=== PATIENT | male | born 1975 | race Caucasian/White ===

== ENCOUNTER 2024-01-21 08:04 | Outpatient (CLI) | payer OTHER, SELFPAY ==
[2024-01-21 18:40] LABS: Hematocrit 41.9 % (42.0-52.0); Hemoglobin 13.6 g/dL (14.0-18.0); Mean Corpuscular HGB Conc 32.5 g/dl (32-36); Mean Corpuscular Hemoglobin 30.6 pg (26-34); Mean Corpuscular Volume 94.4 fl (80-100); Mean Platelet Volume 9.9 fl (7.4-10.4); Platelet Count Result 203 k/mm3 (150-375); Red Blood Count 4.44 M/mm3 (4.6-6.20); Red Cell Distribution Width 13.2 % (11.5-14.5); White Blood Count 4.5 K/mm3 (4.5-10.0)
[2024-01-21 19:35] LABS: Alanine Aminotransferase 16 U/L (6-50); Albumin Level 4.3 g/dL (3.5-5.1); Alkaline Phosphatase 43 U/L (38-126); Anion Gap 7 mmol/L (4-12); Aspartate Amino Transferase 31 U/L (17-59); Bilirubin,Total 0.7 mg/dL (0.2-1.3); Blood Urea Nitrogen 22 mg/dL (9-20); Calcium 9.2 mg/dL (8.4-10.2); Carbon Dioxide 27 mmol/L (22-30); Chloride 105 mmol/L (98-107); Cholesterol 208 mg/dL (0-200); Estimated Glomerular Filt Rate > 60; Glucose 92 mg/dL (65-110); HDL Direct 60 mg/dL; Potassium 4.2 mmol/L (3.4-5.0); Sodium 139 mmol/L (137-145); Triglycerides 58 mg/dL (<150)
[2024-01-21 19:48] LABS: LDL Cholesterol Direct 107 mg/dL
[2024-01-21 20:06] LABS: Prostate Specific Antigen 4.8 ng/mL (< OR = 4.0)
[2024-01-21 20:37] LABS: Vitamin D 25 Hydroxy 42.2 ng/mL
[2024-01-22 14:19] LABS: CRP, High Sensitivity 1.9 mg/L
== END 2024-01-21 08:05 | disposition home or self-care (01) ==
LOC: ANHGOSHLAB 08:06
PROVIDERS: PCP Family Medicine; Visit Provider Family Medicine
DX: Z00.00 Encounter for general adult medical examination without abnormal findings (principal); T78.40XA Allergy, unspecified, initial encounter; R55 Syncope and collapse; Z85.828 Personal history of other malignant neoplasm of skin; Z76.89 Persons encountering health services in other specified circumstances; Z82.49 Family history of ischemic heart disease and other diseases of the circulatory system; X58.XXXA Exposure to other specified factors, initial encounter
CPT/HCPCS: 36415; 80053; 80061; 82306; 82607; 84153; 84443; 85027; 86141

== ENCOUNTER 2024-03-17 08:15 | Outpatient (CLI) | payer OTHER, SELFPAY ==
[2024-03-17 13:10] LABS: Hematocrit 45.3 % (42.0-52.0); Hemoglobin 14.7 g/dL (14.0-18.0); Mean Corpuscular HGB Conc 32.5 g/dl (32-36); Mean Corpuscular Hemoglobin 31.1 pg (26-34); Mean Platelet Volume 10.3 fl (7.4-10.4); Platelet Count Result 207 k/mm3 (150-375); Red Blood Count 4.72 M/mm3 (4.6-6.20); Red Cell Distribution Width 12.8 % (11.5-14.5); White Blood Count 4.4 K/mm3 (4.5-10.0)
[2024-03-17 13:39] LABS: Prostate Specific Antigen 4.5 ng/mL (< OR = 4.0)
[2024-03-17 13:49] LABS: Free T4 Free Thyroxine 0.89 ng/mL (0.78-2.19)
[2024-03-19 09:13] LABS: Thyroid Peroxidase Antibodies >900 IU/mL (<9)
== END 2024-03-17 08:16 | disposition home or self-care (01) ==
LOC: ANHGOSHLAB 08:18
PROVIDERS: PCP Family Medicine; Visit Provider Family Medicine
DX: Z00.00 Encounter for general adult medical examination without abnormal findings (principal); Z76.89 Persons encountering health services in other specified circumstances; T78.40XA Allergy, unspecified, initial encounter; R97.20 Elevated prostate specific antigen [PSA]; R79.89 Other specified abnormal findings of blood chemistry; D64.9 Anemia, unspecified
CPT/HCPCS: 36415; 82728; 84153; 84439; 84443; 85027; 86376; G0103

== ENCOUNTER 2024-07-15 08:43 | Outpatient (CLI) | payer OTHER, SELFPAY | END 2024-07-15 08:44 | disposition home or self-care (01) | LOC: ANHGOSHLAB 08:44 | PROVIDERS: PCP Family Medicine; Visit Provider Family Medicine | DX: E03.9 Hypothyroidism, unspecified (principal) | CPT/HCPCS: 36415; 84443 ==

== ENCOUNTER 2024-10-09 08:45 | Outpatient (CLI) | payer OTHER, SELFPAY ==
[2024-10-09 14:17] LABS: Free T4 Free Thyroxine 1.08 ng/dL (0.78-2.19)
== END 2024-10-09 08:46 | disposition home or self-care (01) ==
PROVIDERS: PCP Family Medicine; Visit Provider Family Medicine
DX: E03.9 Hypothyroidism, unspecified (principal)
CPT/HCPCS: 36415; 84439; 84443

== ENCOUNTER 2025-04-19 08:44 | Outpatient (CLI) | payer OTHER, SELFPAY ==
--- OUTSIDE RECORDS SUMMARY | 2025-04-19 08:50 | XMS_ITS | Patient Health Record ---
Author Organization [facility] Cassie kearney Billing Info Address [address] [place] [address] [place] [address] Care Team Providers Care Stewardesses Teacher Name Role Phone STEVE KUMAR Unavailable [phone] Allergies No Known Allergies Reason For Referral No Information Medications Medication SIG (Take, Route, Fr equency, Duration) Notes Start Date End Date Status Fluconazole 150 MG 1 tablet Orally Maeve y for 3 day(s) 07/13/2020 Not-Taking Immunizations Vaccine Route Administration Date Status Comme nts zFLU 4V (FLUARIX QUAD), 6 MO+, NO PRES - ALL PAYORS IM Intramuscular 07/13/2020 Administered Social History Tobacco Use: Social History Observation Description Date Details (start date - stop date) Never Smoker NA - NA Tobacco Status: Question Answer Notes Patient is a never smoker Problems Problem Type SNOMED Code ICD Code Onset Dates Problem Status W/U Status Risk Notes Problem [id number] Family history of heart disease (Z82.49) Active confirmed Problem [id number] Chronic allergic rhinitis (J30.9) Active confirmed Plan Of Treatment No Information Insurance Providers Payer Name Payer Address Payer Phone Subscriber Number Group Number Insured Name Patient Relationship to Insured Coverage Start Date Coverage End Date [employer] [address] [place], [place] [id number] [phone] [id number] Eduardo Anand Self - patient is the insured Medical (General) History Medical History History ICD Code Takes allergy shots Surgical History Surgery Date(Month/Year)
--- OUTSIDE RECORDS SUMMARY | 2025-04-19 08:50 | XMS_ITS | Clinical Summary ---
Author Organization [facility] Address [address] [place] [address] Care Team Providers Care Reclamation Kettle Tender Name Role Phone Unavailable Primary Care Provider Unavailabl e Source Comments [facility],non-owned Affiliates and Associated Physician Practices is amultiple site organization consisting of ambulatory clinics and hospital sitesin [place], [place], [place] and [place]. This disclosure is being madepursuant to the Care Everywhere program and may not contain all information available regarding this patient. Last updated 18.[facility] [employer] Social History Tobacco Use Types Packs/Day Years Used Date Smoking Tobacco: Never Assessed Sex and Gender Information Value Date Recorded Sex Assigned at Not on file Legal Sex Male 4:16 PM CDT Gender Identity Not on file Sexual Orientation Not on file Plan of Treatment Health Maintenance Due Date Last Done Comments COLOGUARD (AGES 45-75) - COL ON CA SCREENING 1973 COLON MONITORING 1973 COLONOSCOPY - COLON CA SCREENING 1973 CT COLONOGRAPHY - COLON CA SCREENING 1973 Colorectal Cancer Screening 1973 FIT - COLON CA SCREENING 1973 FLEX SIG - COLON CA SCREENING 1973 LIPID TESTING 1973 HIV SCREENING 1988 HEPATITIS C SCREENING 08/24/1991 DTAP/TDAP/TD VACCINES (1 - Tdap) 1992 HEPATITIS B VACCINE (1 of 3 - 19+ 3-dose series) 1992 PNEUMOCOCCAL VACCINE 50+ (1 of 1 - PCV) 2023 ZOSTER VACCINE (1 of 2) 2023 COVID-19 VACCINE (1 - 2023-2 5 season) 2024 DEPRESSION SCREENING 09/09/2024 INFLUENZA VACCINE (#1) 2025 HIB VACCINE Aged Out No longer eligi ble based on patient's age to complete this topic HPV VACCINE Aged Out No longer eligi ble based on patient's age to complete this topic MENINGOCOCCAL (Group B) VACC INE SHARED DECISION-MAKING Aged Out No longer eligibl e based on patient's age to complete this topic MENINGOCOCCAL GROUPS A/C/Y/W VACCINE Aged Out No longer eligible b ased on patient's age to complete this topic Insurance [facility] [employer]
--- OUTSIDE RECORDS SUMMARY | 2025-04-19 08:50 | XMS_ITS | Encounter Summary ---
Author Organization [facility] Address [address] [place] [address] Care Team Providers Care Hims Manager Name Role Phone Unavailable Primary Care Provider Unavailabl e Encounter Details Date Type Department Care Team (Late st Contact Info) Description 12/23/2023 Lab Requisition [facility] - DermPath Lab [address] [facility], [facility] [place] [address] Alaina Ellis DO [address] [facility] 3 [place] [address] Social History Tobacco Use Types Packs/Day Years Used Date Smoking Tobacco: Never Assessed Sex and Gender Information Value Date Recorded Sex Assigned at Not on file Legal Sex Male 4:16 PM CDT Gender Identity Not on file Sexual Orientation Not on file documented as of this encounter Plan of Treatment Not on file documented as of this encounter Procedures Procedure Name Priority Date/Time Associated Diagnosis Comments DERMATOPATHOLOGY Routine 12/23/2023 9:07 AM CDT documented in this encounter Results * DERMATOPATHOLOGY (12/23/2023 9:07 AM CDT) Case Report Dermatopathology Report Case: [id number] Authorizing Provider: Alaina Ellis DO Collected: 12/23/2023 09:07 AM Ordering Location: [facility] - Received: 12/23/2023 04:21 PM DermPath Lab Pathologist: Yamile Wallace MD Specimen: Skin, right helix 4:55 PM CDT DERMATOPATHOLOGY LABORATORY Final Diagnosis Specimen A. 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 NMSC 4:55 PM CDT DERMATOPATHOLOGY LABORATORY Gross Description Specimen A: Received is one formalin filled container labeled with the patient's name and designated right helix. The specimen consists of a shave biopsy measuring 3x3x1 mm. Jar 0. 4:55 PM CDT DERMATOPATHOLOGY LABORATORY Microscopic Description Specimen A. SKIN, right helix: There is an erosion overlying epidermal hyperplasia and dilated blood vessels with fibroplasia. Additional deeper sections were obtained and reviewed. 4:55 PM CDT DERMATOPATHOLOGY LABORATORY Disclaimer An external and internal positive and negative controls are appropriate for the histochemical, immunohistochemical and immunofluorescence stain(s) in this case (if any), except where stated explicitly. The performance characteristics of the stain(s) cited in this report were developed and its performance characteristic determined by the Dermatopathology Laboratory at [facility], directed by Dr. Colleen Almonte. These tests need not be, and therefore are not, approved by the [place] Food and Drug Administration. The tests are used for clinical purposes. Billing Codes Specimen Charges Stain Charges 81136 1 4:55 PM CDT DERMATOPATHOLOGY LABORATORY Embedded Images 4:55 PM CDT DERMATOPATHOLOGY LABORATORY Pathology/Cytolo gy TISSUE SPECIMEN FROM SKIN / Unknown 12/23/2023 9:07 AM CDT 12/23/2023 4:21 PM CDT us Alaina Ellis DO LAB - PATHOLOGY/CYTOLOGY ORDERABLES Final Result DERMATOPATHOLOGY LABORATORY [facility] - Department of Dermatology [address], [address] [phone] documented in this encounter Visit Diagnoses Not on filedocumented in this encounter
--- OUTSIDE RECORDS SUMMARY | 2025-04-19 08:50 | XMS_ITS ---
Author Organization [facility] Address [address] [place] [address] Care Team Providers Care Power Plant Manager Name Role Phone Perry Page Primary Care Provider Unavailab Sarah Blackburn Unavailable [phone] Migration, Provider Unavailable Unavailable [facility] Encounter Medications Medication SIG (Take, Route, Frequency, Duration) Notes Start Date End Date Status Triamcinolone Acetonide 0.5 % Cream 1 eliza applied topically 2 times a day; Duration: 14 days 06/26/2021 Active Encounters Encounter Location Date Provider Diagnosis [facility] [address] [address] 11/14/2024 Provider Migration Plan Of Treatment No Information Progress Notes * Eduardo SILVA CDOB:1974 (49 yo M)Acc No.[id number]:11/14/2024 Patient: Gracy jimbomartha Eduardo Colvin Provider: :1975 A ge:49 Y S ex:Male Date:11/14/2024 Address:[address] [id number] Pcp:Perry Page Subjective: * Chief Complaints: * M ultum To Medispan Conversion Encounter * Medications: T akingTriamcinolone Acetonide 0.5 % Cream 1 eliza applied topically 2 times a day Taking Triamcinolone Acetonide 0.5 % Cream 1 eliza applied topically 2 times a day * Electronic signature of Prov ider Migration on 04/19/2025 at 08:50 AM CDT Sign off status: Pending * Provider: Date: 0 11/14/2024 Generated for Geoff guerrero/Camilla/Christopher on: 0 04/19/2025 08:50 AM CDT
--- OUTSIDE RECORDS SUMMARY | 2025-04-19 08:50 | XMS_ITS | Encounter Summary ---
Author Organization [facility] Address [address] [facility] [place] [place] [address] Care Team Providers Care Warp Knitter Helper Name Role Phone Unavailable Primary Care Provider Unavailabl e Encounter Details Date Type Department Care Team (Late st Contact Info) Description 09/21/2024 Lab Requisition [facility] - DermPath Lab [address] [facility], [facility] [place] [address] Alaina Ellis DO [address] [facility] [address] [place] [address] Social History Tobacco Use Types Packs/Day Years [...] Priority Date/Time Associated Diagnosis Comments DERMATOPATHOLOGY Routine 09/21/2024 1:59 PM COIL STRAPPER documented in this encounter Results * DERMATOPATHOLOGY (09/21/2024 1:59 PM COIL STRAPPER) Case Report Dermatopathology Report Case: [id number] Authorizing Provider: Alaina Ellis DO Collected: 09/21/2024 01:59 PM Ordering Location: [facility] - Received: 09/22/2024 02:14 PM DermPath Lab Pathologist: Carole Almonte MD Specimens: A) - Skin, right upper back B) - Skin, upper back below scar 5 5:07 PM COIL STRAPPER DERMATOPATHOLOGY LABORATORY Final Diagnosis Specimen A. 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 SKIN, upper back below scar: EPIDERMOID CYST, FRAGMENTS OF (L72.0) 5 5:07 PM [facility] DERMATOPATHOLOGY LABORATORY at 1707 COIL STRAPPER Clinical History A: R/O recurrent DFSP B: Cyst/Scar 5:07 PM [facility] DERMATOPATHOLOGY LABORATORY Gross Description Specimen A: Received is one formalin filled container labeled with the patient's name and designated right upper back. The specimen consists of a shave biopsy measuring 8x6x3 mm. Jar 0. Specimen B: Received is one formalin filled container labeled with the patient's name and designated upper back below scar. The specimen consists of a punch biopsy measuring 4x4x8 mm. Jar 0+. 5:07 PM [facility] DERMATOPATHOLOGY LABORATORY Microscopic Description Specimen A. SKIN, right upper back: There are very thick, brightly eosinophilic, haphazardly arranged collagen bundles associated with an increased number of fibroblasts. There are fibroblasts and collagen bundles oriented parallel to the skin surface with elongated blood vessels, some of which are oriented perpendicular to the skin surface. COMMENT: Given the superficial nature of the biopsy specimen, a deeper dermal process cannot be excluded. Specimen B. SKIN, upper back below scar: Sections show multiple portions of epithelium with a granular layer. There are also portions of keratin, predominantly in a basket-woven configuration. 5:07 PM [facility] DERMATOPATHOLOGY LABORATORY Disclaimer An external and internal positive and negative controls are appropriate for the histochemical, immunohistochemical and immunofluorescence stain(s) in this case (if any), except where stated explicitly. The performance characteristics of the stain(s) cited in this report were developed and its performance characteristic determined by the Dermatopathology Laboratory at [facility], directed by Dr. Colleen Almonte. These tests need not be, and therefore are not, approved by the [place] Food and Drug Administration. The tests are used for clinical purposes. Billing Codes Specimen Charges Stain Charges 38389 21443 1 1 5:07 PM [facility] DERMATOPATHOLOGY LABORATORY Embedded Images 5:07 PM [facility] DERMATOPATHOLOGY LABORATORY Pathology/Cytology TISSUE SPECIMEN FROM SKIN / Unknown 09/21/2024 1:59 PM COIL STRAPPER 09/22/2024 2:14 PM [facility] Miscellaneous samples (specimen) TISSUE SPECIMEN FROM SKIN / Unknown 09/21/2024 1:59 PM COIL STRAPPER 09/22/2024 2:14 PM COIL STRAPPER us Alaina Ellis DO LAB - PATHOLOGY/CYTOLOGY ORDERABLES Final Result DERMATOPATHOLOGY LABORATORY [facility] - Department of Dermatology [facility] [address] [place] [address], [address] [phone] documented in this encounter Visit Diagnoses Not on filedocumented in this encounter
--- OUTSIDE RECORDS SUMMARY | 2025-04-19 08:50 | XMS_ITS | Patient Health Record ---
Author Organization [facility] Address [address] [facility] [address] Care Team Providers Care Ladder Operator Name Role Phone DantemegganPerry Primary Care Provider Unavailab Sarah Blackburn Unavailable [phone] Migration, Provider Unavailable Unavailable Allergies No Known Allergies Reason For Referral No Information Medications Medication SIG (Take, Route, Frequency, Duration) Notes Start Date End Date Status Triamcinolone Acetonide 0.5 % Cream 1 eliza applied topically 2 times a day; Duration: 14 days 06/26/2021 Active Social History Social History Additional Details Category Social Info Options Details Social History Sunscreen use Yes Alcohol: Do you typically krause ve 6 or more alcohol containing drinks on one occasion? No Smoker: Are you a current ev dorinda day smoker, vape user, or any other form of nicotine? 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 Mohs Encounters Encounter Location Date Provider Diagnosis [facility] [address] [place] [address] 11/14/2024 Provider Migration Plan Of Treatment No Information Insurance Providers Payer Name Payer Address Payer Phone Subscriber Number Group Number Insured Name Patient Relationship to Insured Coverage Start Date Coverage End Date [employer] [address] [facility] [place] [phone] [id number] Eduardo Anand Self - patient is the insured 2021 Medical (General) History Medical History History ICD Code Skin Cancer: Yes (DERMATOFIBROSARCOMA) Cancer, other: No Atypical Moles: No Surgery: No Arthritis: No Diabetes: No Coronary Artery Disease: No Heart Valve Replacement: No Congestive Heart Failure: No High Blood Pressure: No Seizures: No Stroke: No Hepatitis C: No HIV/Aids: No Joint/Hip Replacement: No Neoplasm of uncertain behavior of skin ( resolved 05/03/2022) 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
--- OUTSIDE RECORDS SUMMARY | 2025-04-19 08:50 | XMS_ITS | Encounter Summary ---
Author Organization [facility] Address [address] [facility] [place] [address] Care Team Providers Care Mammography Supervisor Name Role Phone Unavailable Primary Care Provider Unavailabl e Encounter Details Date Type Department Care Team (Late st Contact Info) Description 02/25/2023 Lab Requisition [facility] - DermPath Lab [address] [facility], [facility] [place] [address] Alaina Ellis DO [address] [facility] 3 [place] [address] Social History Tobacco Use Types Packs/Day Years [...] Priority Date/Time Associated Diagnosis Comments DERMATOPATHOLOGY Routine 02/25/2023 2:32 PM CDT documented in this encounter Results * DERMATOPATHOLOGY (02/25/2023 2:32 PM CDT) Case Report Dermatopathology Report Case: [id number] Authorizing Provider: Alaina Ellis DO Collected: 02/25/2023 02:32 PM Ordering Location: [facility] DermPath Lab Received: 02/26/2023 12:47 PM Pathologist: Melissa Dobson MD Specimen: Skin, left upper inner arm 3 4:13 PM CDT DERMATOPATHOLOGY LABORATORY Final Diagnosis Specimen A. SKIN, left upper inner arm: SUBACUTE SPONGIOTIC DERMATITIS (L30.8) (see microscopic description and comment) 3 4:13 PM CDT DERMATOPATHOLOGY LABORATORY at 1613 CDT Clinical History R/O NMSC 3 4:13 PM CDT DERMATOPATHOLOGY LABORATORY Gross Description Specimen A: Received is one formalin filled container labeled with the patient's name and designated left upper inner arm. The specimen consists of a shave biopsy measuring 5x2x1 mm. Jar 0. 3 4:13 PM CDT DERMATOPATHOLOGY LABORATORY Microscopic Description Specimen A. SKIN, left upper inner arm: There is focal parakeratosis and spongiosis of the epidermis. In the dermis there is a mainly superficial perivascular lymphoid infiltrate. COMMENT: These histological findings are consistent with an eczematous dermatitis. 3 4:13 PM CDT DERMATOPATHOLOGY LABORATORY Disclaimer An external and internal positive and negative controls are appropriate for the histochemical, immunohistochemical and immunofluorescence stain(s) in this case (if any), except where stated explicitly. The performance characteristics of the stain(s) cited in this report were developed and its performance characteristic determined by the Dermatopathology Laboratory at [facility], directed by Dr. Colleen Almonte. These tests need not be, and therefore are not, approved by the [place] Food and Drug Administration. The tests are used for clinical purposes. Billing Codes Specimen Charges Stain Charges 75613 1 3 4:13 PM CDT DERMATOPATHOLOGY LABORATORY Embedded Images 3 4:13 PM CDT DERMATOPATHOLOGY LABORATORY Pathology/Cytolo gy TISSUE SPECIMEN FROM SKIN / Unknown 02/25/2023 2:32 PM CDT 02/26/2023 12:47 PM CDT us Alaina Ellis DO LAB - PATHOLOGY/CYTOLOGY ORDERABLES Final Result DERMATOPATHOLOGY LABORATORY [facility] - Department of Dermatology [address], [address] [phone] documented in this encounter Visit Diagnoses Not on filedocumented in this encounter
--- OUTSIDE RECORDS SUMMARY | 2025-04-19 08:50 | XMS_ITS | Clinical Summary ---
Author Organization [facility] Address [address] [place] [address] Care Team Providers Care Lacquer Pin Press Operator Name Role Phone No, Physician Primary Care Provider [phone] Allergies Active Allergy Reactions Criticality Noted Date Comments Grass Pollen Itching Low 1975 Horse/Equine Containing Products Sneezing Low Peanut Anaphylaxis High 1973 Medications acetaminophen (TYLENOL) 500 mg tablet Take 1 tablet (500 mg total) by mouth every 6 (six) hours as needed for pain 20 tablet 10/26/2022 Active oxyCODONE (ROXICODONE) 5 mg immediate release tabletIndication s:Pain Take 1 tablet (5 mg total) by mouth every 4 (four) hours as needed for pain 5 tablet 10/26/2022 Active Active Problems Problem Noted Date Diagnosed Date 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 Never 10/26/2022 Q2: How many drinks containi ng alcohol do you have on a typical day when you are drinking? Patient does not drink Q3: How often do you have si x or more drinks on one occasion? Never 10/26/2022 Personal Safety Answer Date Recorded Getting School Help Needed Denies 08/29 Sex and Gender Information Value Date Recorded Sex Assigned at Not on file Legal Sex Male 8:16 AM [employer] Gender Identity Not on file Sexual Orientation Not on file Obstetrics History Last Filed Vital Signs Vital Sign Reading Time Taken Comments Blood Pressure 121/73 10/26/2022 10:00 AM [employer] Pulse 60 10/26/2022 10:00 AM [employer] Temperature 36.1 C (97 F) 10/26/2022 9:20 AM [employer] Respiratory Rate 7 10/26/2022 10:00 AM [employer] Oxygen Saturation 100% 10/26/2022 10:00 AM [employer] Inhaled Oxygen Concentration - - Weight 91.2 kg (201 lb) 10/04/2022 11:15 AM [employer] Height 180.3 cm (5' 11) 10/04/2022 11:15 AM [employer] Body Mass Index 28.03 10/04/2022 11:15 AM [employer] Plan of Treatment Health Maintenance Due Date Last Done Comments Colon Cancer Screening-Colonoscopy 1975 Depression Screening 1975 Hepatitis C Screening 1973 Prostate Cancer Screening-PSA 1973 DTaP/Tdap/Td Vaccine (1 - Tdap) 1984 Hepatitis B Screening 1991 Regular Well Visit/Exam 18-64 1991 Zoster Vaccine (1 of 2) 2023 Influenza Vaccine (#1) 2025 Pneumococcal vaccine <65 Aged Out No longer eligible based on patient's age to complete this topic Insurance [facility] [employer] [employer] Care Teams Lacquer Pin Press Operator Relationship Specialty Start Date End Date No, Physician PCP - General 08/17/22
[2025-04-19 13:00] LABS: Hematocrit 42.3 % (42.0-52.0); Hemoglobin 13.9 g/dL (14.0-18.0); Immature Granulocyte Percent A 0.2 % (0-0.5); Lymphocytes Absolute Auto 1.00 K/mm3 (0.9-3.2); Mean Corpuscular HGB Conc 32.9 g/dl (32-36); Mean Corpuscular Hemoglobin 30.7 pg (26-34); Mean Corpuscular Volume 93.4 fl (80-100); Nucleated Red Blood Cells Absolute Auto 0.000 K/mm3 (0.0-0.012); Nucleated Red Blood Cells Perc 0.0 % (0.0-0.2); Platelet Count Result 202 k/mm3 (150-375); Red Blood Count 4.53 M/mm3 (4.6-6.20); White Blood Count 4.5 K/mm3 (4.5-10.0)
[2025-04-19 13:23] LABS: Alanine Aminotransferase 20 U/L (6-50); Albumin Level 4.3 g/dL (3.5-5.1); Alkaline Phosphatase 40 U/L (38-126); Anion Gap 7 mmol/L (4-12); Aspartate Amino Transferase 46 U/L (17-59); Bilirubin,Total 0.6 mg/dL (0.2-1.3); Blood Urea Nitrogen 13 mg/dL (9-20); Calcium 9.2 mg/dL (8.4-10.2); Carbon Dioxide 26 mmol/L (22-30); Chloride 104 mmol/L (98-107); Cholesterol 183 mg/dL (0-200); Estimated Glomerular Filt Rate > 60; Glucose 97 mg/dL (65-110); HDL Direct 59 mg/dL; Potassium 4.5 mmol/L (3.4-5.0); Sodium 137 mmol/L (137-145); Total Protein 7.4 g/dL (6.3-8.2); Triglycerides 67 mg/dL (<150)
[2025-04-19 14:04] LABS: Prostate Specific Antigen 6.1 ng/mL (< OR = 4.0); Thyroid Stimulating Hormone 4.300 uIU/mL (0.465-4.680)
== END 2025-04-19 08:45 | disposition home or self-care (01) ==
LOC: ANHGOSHLAB 08:45
PROVIDERS: PCP Family Medicine; Visit Provider Family Medicine
DX: Z00.00 Encounter for general adult medical examination without abnormal findings (principal); Z12.5 Encounter for screening for malignant neoplasm of prostate; Z76.89 Persons encountering health services in other specified circumstances; E03.9 Hypothyroidism, unspecified; R97.20 Elevated prostate specific antigen [PSA]; D64.9 Anemia, unspecified; R55 Syncope and collapse
CPT/HCPCS: 36415; 80053; 80061; 82172; 82306; 84153; 84443; 85025; G0103

== ENCOUNTER 2025-07-15 00:08 | Day surgery (SDC) | payer OTHER, SELFPAY ==
--- OUTSIDE RECORDS SUMMARY | 2024-11-14 15:30 | XMS_ITS ---
Author Organization [facility] Address [address] [place] [address] Care Team Providers Care Corporate Claims Examiner Name Role Phone Perry Page Primary Care Provider Unavailab Sarah Blackburn Unavailable [phone] Migration, Provider Unavailable Unavailable [facility] Encounter Medications Medication SIG (Take, Route, Frequency, Duration) Notes Start Date End Date Status Triamcinolone Acetonide 0.5 % Cream 1 eliza applied topically 2 times a day; Duration: 14 days 06/26/2021 Active Encounters Encounter Location Date Provider Diagnosis [facility] [employer] [address] [address] 11/14/2024 Provider Migration Plan Of Treatment No Information Progress Notes * Eduardo SILVA CDOB:1974 (49 yo M)Acc No.[id number]:11/14/2024 Patient: Gracy jimbomartha Eduardo Clovin Provider: :1975 A ge:49 Y S ex:Male Date:11/14/2024 Address:[address] [id number] Pcp:Perry Page Subjective: * Chief Complaints: * M ultum To [facility] Conversion Encounter * Medications: T akingTriamcinolone Acetonide 0.5 % Cream 1 eliza applied topically 2 times a day Taking Triamcinolone Acetonide 0.5 % Cream 1 eliza applied topically 2 times a day * Electronic signature of Prov ider Migration on 07/15/2025 at 03:56 PM SECURITY FIELD SUPERVISOR Sign off status: Pending * Provider: Date: 0 11/14/2024 Generated for Geoff guerrero/Camilla/Christopher on: 1 09/14/2024 03:56 PM SECURITY FIELD SUPERVISOR
--- NOTE | 2025-07-05 13:44 | SUR.PREOP ---
[facility] has started construction of its new state of the art ER which will open Spring 2026. With this, we anticipate parking may be a challenge for some our surgical patients and families. Parking spaces are limited but are available for all Surgical, obstetrics, and ER patients sharing this lot. If you arrive and find you are having a hard time finding a parking space, please note that we understand the challenges, please drive around the hospital and park near Hospital Entrance 1. When you enter this entrance, you can ask a volunteer to direct or take you back to the surgical waiting area to check in. We appreciate everyone?s understanding of these expected challenges while we build for your future. Report to the Outpatient Waiting Room, entrance under the green pavilion located off [address], at time __1045AM___ on date _07/15/25_. Planned Procedure Time: _1245PM__.? Time changes happen often and if your time is changed the preop area will call you the afternoon before. - You and your visitor will be asked to self-screen and do not enter if you have any COVID symptoms. Please call surgeon if you need to reschedule. - A mask is optional within the hospital at this time. Patients may have clear liquids (water, carbonated beverages, clear teas, apple juice) until 3 hours prior to surgery with a maximum of 20 ounces. - No food from midnight until time of surgery and no smoking, or chewing tobacco (or any form of nicotine). No chewing gum, candy or mints. Take only the following medications with a SIP of water on the morning of surgery: ___Levothyroxine___ DO NOT STOP ANY OF YOUR OTHER PRESCRIPTION MEDICATIONS PRIOR TO SURGERY EXCEPT THE FOLLOWING Hold all vitamins and supplements for 3 days per anesthesiologist. Medications to discontinue per physician ___n/a__ Date to take last dose___n/a___ Please no make-up, nail english, hairspray, perfume, deodorant, or body powder the day of surgery.? No jewelry (including any body piercings) or valuables the day of surgery, leave them at home.? Please take a shower or bath the night before, or the morning of, surgery with an antibacterial soap.? Wear comfortable, loose fitting clothing.? - Jewelry must be removed prior to entering the operating room.? Rings and piercings that are not removed may be cut off. - The hospital will not accept responsibility for valuables.? - Please leave all valuables, including medications, at home the day of surgery. If you are going home after surgery, a licensed sweeper driver must drive you home.? - NO public transportation without another adult if you receive anesthesia. - We recommend that an adult stay with you for 24 hours following discharge. - We also recommend that you do not drive, make important decision, drink alcoholic beverages, or take any drugs that were not prescribed by your health care provider for at least 24 hours after your discharge time. Follow any additional instructions given to you from your surgeon. Telephone instructions given to __Eduardo__and asked if any additional questions and then verbalized understanding. Patient advised to call surgeon office or pre surgery nurse liaison [phone] if any additional questions.
[2025-07-05 13:50] VITALS: BMI 29.9
--- NOTE | 2025-07-07 06:56 | PM.HPGS ---
History of Present Illness History of Present Illness Consent: Risks, benefits, and alternatives have been discussed and questions answered. Patient agrees to proceed with procedure. Chief complaint: elevated PSA Narrative: Eduardo Anand is a 49 year old male recently referred by his primary care physician for evaluation of a PSA elevation. His most recent PSA was ng/dl (6.1). His urological history is notable for previously elevated PSA, but he denies prior previous prostate biopsy or urinary tract infections. This abnormal PSA value has not been corroborated by repeat examination. This man has never been on a 5-alpha reductase inhibitor. He has no family history of prostate cancer in his father or brothers. Note for Abnormal PSA: . 06/2025: ?PSA: 6.1 06/21/25: ?mpMRI Prostate: - volume: 28gm ?- PI-RADS 4: posterior midline PZ ?- PI-RADS 4: anterior midline PZ-TZ junction Review of Systems Review of Systems: All systems reviewed & are unremarkable except as noted in HPI and below PMFSH Family History Family History Father Hypertension Heart problem Mother Colon cancer Sibling Hypertension Daughter Celiac syndrome Grandparent Lung cancer Grandparent Breast cancer Diabetes mellitus Hypertension Heart problem Social History Social History Smoking status: Never smoker Second hand tobacco smoke exposure: No Alcohol intake: never Substance use: never Substance use type: does not use Do You Feel Safe in your Home?: Yes Lack of Transportation: No Lack of Food: Never True Current Housing: I Have Housing Concerned About Future Housing: No Difficulty Paying Gas/Electric Bills: No Difficulty Paying for Meds: No Currently Unemployed: No Difficulty w/ Childcare or Family Care: No Living arrangements: with family Occupation/Education: occupation 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 Gender identity (if verbalized by the patient): Male Sexual Orientation (if Verbalized by the Patient): Straight or Heterosexual Spiritual care concerns: No Agree to blood products: Yes Meds Home Medications and Allergies Home Medications ?Medication ?Instructions ?Recorded ?Confirmed ?Type levothyroxine 50 mcg tablet 50 mcg PO DAILY #90 tabs 04/08/25 07/05/25 Rx (Synthroid) clobetasol 0.05 % topical ointment 1 applic topical DAILY PRN poison 07/05/25 07/05/25 History karine epinephrine 0.3 mg/0.3 mL 0.3 ml IM PRN 07/05/25 07/05/25 History injection, auto-injector Allergies Allergy/AdvReac Type Severity Reaction Status Date / Time peanut Allergy Intermediate Other Verified 07/05/25 13:48 Exam Const: General: no acute distress Resp: Effort & Inspection: normal respiratory effort GI: Inspection: non-distended GI Palp: No abdominal tenderness and No Guarding due to palpation present (GI) Auscultation: normal bowel sounds Assessment and Plan Assessment and plan (1) Elevated PSA: Code(s): R97.20 - Elevated prostate specific antigen [PSA] Status: Acute Assessment and Plan: Transrectal fusion-guided biopsy prostate
--- NOTE | 2025-07-15 06:13 | WPDHPUPDATE1 ---
History and Physical Update Update Date/Time: 07/15/25 06:13 History and Physical has been reviewed, including an updated exam of the patient. There are NO changes in the patient's condition. Risks, benefits, and alternatives have been discussed and questions answered. Patient agrees to proceed with procedure.
[2025-07-15 11:00] VITALS: BP 137/93; PULSE 69; RESP 18; TEMP 36.9; O2SAT 100
[2025-07-15] MEDS: LACTATED RINGERS 1,000 ML 30 ML IV CONT (11:10)
[2025-07-15 11:20] VITALS: BMI 28.2
--- NOTE | 2025-07-15 11:41 | S_PTH ---
PATIENT: Eduardo Anand LOC: [facility] U#:[id number] AGE/SX: 49/M ROOM: RE07/15/[address]: Elfego sEcoto MD : 1975 BED: DIS: 07/15/2025 SPEC #: [id number] RECD: 07/15/25 13:52 STATUS: JOSE RAMON REQ #: [id number] PHAM: 07/15/25 11:[address]: Elfego Escoto DEPT: [facility] Surgical RECD BY: Alcira Warner ENTERED: 07/15/25 13:52 SP TYPE: Surgical OTHR DR: Pavel Bryant MD Tissues: A - Prostate Bx B - Prostate Bx C - Prostate Bx D - Prostate Bx E - Prostate Bx F - Prostate Bx G - Prostate Bx H - Prostate Bx I - Prostate Bx J - Prostate Bx K - Prostate Bx L - Prostate Bx M - Prostate Bx N - Prostate Bx Procedures: Unstained Slides Hematoxylin and Eosin Stain Prostate Biopsy
--- NOTE | 2025-07-15 11:46 | P.PNAN_ITS ---
Anes - Initial Pre Proc Eval Procedure: Operation Date: 07/15/25 12:45 Proposed Procedures p Trans Rectal Ultrasound Fusion Guided Prostate Biopsy - Elfego Escoto MD Date/Time: 07/15/25 11:46 Surgeon: Elfego Escoto MD Pre Op Diagnosis: elevated PSA Patient Data Age: 49 Gender: M Height: 1.8 m Weight: 91.9 kg Last Vital Signs Temp 36.9 C 07/15/25 11:00 Pulse 69 07/15/25 11:00 Resp 18 07/15/25 11:00 BP 137/93 H 07/15/25 11:00 Pulse Ox 100 07/15/25 11:00 O2 Del Method Room Air 07/15/25 11:00 Allergies Allergy/AdvReac Type Severity Reaction Status Date / Time peanut Allergy Intermediate Other Verified 07/15/25 11:19 Home Medications ?Medication ?Instructions ?Recorded ?Confirmed ?Type levothyroxine 50 mcg tablet 50 mcg PO DAILY #90 tabs 0 04/08/25 07/15/25 Rx (Synthroid) clobetasol 0.05 % topical ointment 1 applic topical DA SPENSER PRN poison 07/05/25 07/05/25 History karine epinephrine 0.3 mg/0.3 mL 0.3 ml IM PRN 07/05/2507/05 History injection, auto-injector Patient hx anesthesia problems: none Family hx anesthesia problems: none Results Review: All pre-operative results and documents have been reviewed as part of the pre- operative evaluation. [facility] Past Medical History Medical History Hx of skin malignancy Elevated TSH Hypothyroidism Family History Family History Father Hypertension Heart problem Mother Colon cancer Sibling Hypertension Daughter Celiac syndrome Grandparent Lung cancer Grandparent Breast cancer Diabetes mellitus Hypertension Heart problem Social History Social History Smoking status: Never smoker Second hand tobacco smoke exposure: No Alcohol intake: never Substance use: never Substance use type: does not use Do You Feel Safe in your Home?: Yes Lack of Transportation: No Lack of Food: Never True Current Housing: I Have Housing Concerned About Future Housing: No Difficulty Paying Gas/Electric Bills: No Difficulty Paying for Meds: No Currently Unemployed: No Difficulty w/ Childcare or Family Care: No Living arrangements: with family Occupation/Education: occupation 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 Gender identity (if verbalized by the patient): Male Sexual Orientation (if Verbalized by the Patient): Straight or Heterosexual Spiritual care concerns: No Agree to blood products: Yes Anes - Eval Final PreProcedure Day of Procedure 07/15/25 11:46 Patient weight: overweight Heart: regular rate and rhythm Lungs: clear to auscultation Airway: Mallampati scale class II Neurological: alert and oriented Last oral intake: >/= 8 hours ASA classification: III Emergent: no Anesthetic plan: proceed Anesthesia type and monitoring: general GIVS and standard monitoring Results Review: All pre-operative results and documents have been reviewed as part of the pre- operative evaluation. Informed Consent: The patient's anesthetic plan and its attendant risks and benefits were discussed with the patient/family/POA. Questions were solicited and answers provided to the satisfaction of the patient/family/POA.
[2025-07-15] MEDS: cefTRIAXone 1 GM in SODIUM CHLORIDE 0.9% IV 50 ML 100 ML IVPB (11:53)
[2025-07-15 12:17] VITALS: BP 106/85; PULSE 75; RESP 18; O2SAT 99
[2025-07-15 12:45] VITALS: BP 122/77; PULSE 61; RESP 16
--- NOTE | 2025-07-15 14:08 | P.OP_ITS ---
Procedure Note - Detailed Date of Procedure 07/15/25 Pre-op Diagnosis elevated PSA Post-op Diagnosis Same Procedure Performed Uronav prostate biopsy Surgeon Elfego Escoto MD Anesthesia MAC Description of Procedure Patient is brought to the operative suite where he is positioned in the left lateral position. Systemic sedation is administered per the anesthesia department. Surgical time-out is undertaken and it's verified the patient has received preoperative antibiotics. Transrectal ultrasonography is undertaken with a standard transrectal probe. The Manga Corta system is used to superimpose his previously obtained mpMRI prostate images on the real-time transrectal ultrasond images. Prostate volume is calculated at 28cc. On the previous mpMRI there are 2 regions of interest. Using the transrectal needle design for prostate biopsies 3 cores from each region of interest her obtain. We then proceeded with a standard 12 core prostate biopsy. Transrectal probe was removed and patient taken to recovery room having tolerated the procedure well. Blood loss was less than 10 cc. Drains No Pathology Yes Complications No immediate complications Condition Stable Disposition PACU
--- OUTSIDE RECORDS SUMMARY | 2025-07-15 15:56 | XMS_ITS | Encounter Summary ---
Author Organization [facility] Address [address] [place] [address] Care Team Providers Care General Utility Maintenance Repairer Name Role Phone Unavailable Primary Care Provider Unavailabl e Encounter Details Date Type Department Care Team (Late st Contact Info) Description 09/21/2024 Lab Requisition [facility] - DermPath Lab [address] [facility], [facility] [place] [place] [address] Alaina Ellis DO [address] [facility] 3 [place] [address] Social History Tobacco Use Types Packs/Day Years [...] Diagnosis Comments DERMATOPATHOLOGY Routine 09/21/2024 1:59 PM PHARMACY RETAIL SUPPORT SPECIALIST documented in this encounter Results * DERMATOPATHOLOGY (09/21/2024 1:59 PM PHARMACY RETAIL SUPPORT SPECIALIST) Case Report Dermatopathology Report Case: [id number] Authorizing Provider: Alaina Ellis DO Collected: 09/21/2024 01:59 PM Ordering Location: [facility] - Received: 09/22/2024 02:14 PM DermPath Lab Pathologist: Carole Almonte MD Specimens: A) - Skin, right upper back B) - Skin, upper back below scar 5 5:07 PM PHARMACY RETAIL SUPPORT SPECIALIST DERMATOPATHOLOGY LABORATORY Final Diagnosis Specimen A. 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 SKIN, upper back below scar: EPIDERMOID CYST, FRAGMENTS OF (L72.0) 5 5:07 PM [facility] DERMATOPATHOLOGY LABORATORY at 1707 PHARMACY RETAIL SUPPORT SPECIALIST Clinical History A: R/O recurrent DFSP B: Cyst/Scar 5:07 PM [facility] DERMATOPATHOLOGY LABORATORY Gross Description Specimen A: [...] measuring 4x4x8 mm. Jar 0+. 5:07 PM [facility] DERMATOPATHOLOGY LABORATORY Microscopic Description Specimen A. [...] predominantly in a basket-woven configuration. 5:07 PM [facility] DERMATOPATHOLOGY LABORATORY Disclaimer An external and internal positive and negative controls are appropriate for the histochemical, immunohistochemical and immunofluorescence stain(s) in this case (if any), except where stated explicitly. The performance characteristics of the stain(s) cited in this report were developed and its performance characteristic determined by the Dermatopathology Laboratory at [facility], directed by Dr. Colleen Almonte. These tests need not be, and therefore are not, approved by the [place] Food and Drug Administration. The tests are used for clinical purposes. Billing Codes Specimen Charges Stain Charges 28016 75036 1 1 5:07 PM [facility] DERMATOPATHOLOGY LABORATORY Embedded Images 5:07 PM [facility] DERMATOPATHOLOGY LABORATORY Pathology/Cytology TISSUE SPECIMEN FROM SKIN / Unknown 09/21/2024 1:59 PM PHARMACY RETAIL SUPPORT SPECIALIST 09/22/2024 2:14 PM [facility] Miscellaneous samples (specimen) TISSUE SPECIMEN FROM SKIN / Unknown 09/21/2024 1:59 PM PHARMACY RETAIL SUPPORT SPECIALIST 09/22/2024 2:14 PM PHARMACY RETAIL SUPPORT SPECIALIST us Alaina Ellis DO LAB - PATHOLOGY/CYTOLOGY ORDERABLES Final Result DERMATOPATHOLOGY LABORATORY [facility] - Department of Dermatology [facility] Medicine [address] [place] [address], [address] [phone] documented in this encounter Visit Diagnoses Not on filedocumented in this encounter
--- OUTSIDE RECORDS SUMMARY | 2025-07-15 15:56 | XMS_ITS | Patient Health Record ---
Author Organization [facility] Cassie kearney Billing Info Address [address] [place] [address] [place] [address] Care Team Providers Care Push Button Switch Assembler Name Role Phone STEVE KUMAR Unavailable [phone] Allergies No Known Allergies Reason For Referral [...] Problem Status W/U Status Risk Notes Problem [id number] Family history of heart disease (Z82.49) Active confirmed Problem [id number] Chronic allergic rhinitis (J30.9) Active confirmed Plan Of Treatment No Information Insurance Providers Payer Name Payer Address Payer Phone Subscriber Number Group Number Insured Name Patient Relationship to Insured Coverage Start Date Coverage End Date [employer] [address] [place], [place] [phone] [phone] [id number] Eduardo Anand Self - patient is the insured Medical (General) History Medical History History ICD Code Takes allergy shots Surgical History Surgery Date(Month/Year)
--- OUTSIDE RECORDS SUMMARY | 2025-07-15 15:56 | XMS_ITS | Encounter Summary ---
Author Organization [facility] Address [address] [facility] [place] [address] Care Team Providers Care Wrapper Sizer Name Role Phone Unavailable Primary Care Provider Unavailabl e Encounter Details Date Type Department Care Team (Late st Contact Info) Description 02/25/2023 Lab Requisition [facility] - DermPath Lab [address] [facility], [facility] [place] [address] Alaina Ellis DO [address] [facility] [address] [place] [address] Social History Tobacco Use Types Packs/Day Years [...] PM CDT) Case Report Dermatopathology Report Case: [id number] Authorizing Provider: Alaina Ellis DO Collected: 02/25/2023 02:32 PM Ordering Location: [facility] DermPath Lab Received: 02/26/2023 12:47 PM Pathologist: [...] characteristic determined by the Dermatopathology Laboratory at [facility], directed by Dr. Colleen Almonte. These tests need not be, and therefore are not, approved by the [place] Food and Drug Administration. The tests are used for clinical purposes. Billing Codes Specimen Charges Stain Charges 94096 1 3 4:13 PM CDT DERMATOPATHOLOGY LABORATORY Embedded Images 3 4:13 PM CDT DERMATOPATHOLOGY LABORATORY Pathology/Cytolo gy TISSUE SPECIMEN FROM SKIN / Unknown 02/25/2023 2:32 PM CDT 02/26/2023 12:47 PM CDT us Alaina Ellis DO LAB - PATHOLOGY/CYTOLOGY ORDERABLES Final Result DERMATOPATHOLOGY LABORATORY [facility] - Department of Dermatology [address], [address] [phone] documented in this encounter Visit Diagnoses Not on filedocumented in this encounter
--- OUTSIDE RECORDS SUMMARY | 2025-07-15 15:56 | XMS_ITS | Clinical Summary ---
Author Organization [facility] Address [address] [facility] [place] [address] Care Team Providers Care Acquisition Advisor Name Role Phone Unavailable Primary Care Provider Unavailabl e Source Comments [facility],non-owned Affiliates and Associated Physician Practices is amultiple site organization consisting of ambulatory clinics and hospital sitesin [place], [place], [place] and [place]. This disclosure is being madepursuant to the Care Everywhere program and may not contain all information available regarding this patient. Last updated 18.[facility] [employer] Social History Tobacco Use Types Packs/Day Years [...] 2023 ZOSTER VACCINE (1 of 2) 2023 DEPRESSION SCREENING 09/09/2024 COVID-19 VACCINE (1 - 2023-2 5 season) 2025 INFLUENZA VACCINE (#1) 2025 HIB VACCINE Aged [...] patient's age to complete this topic Insurance [facility] [employer] GENERIC
--- OUTSIDE RECORDS SUMMARY | 2025-07-15 15:56 | XMS_ITS | Encounter Summary ---
Author Organization [facility] Address [address] [facility] [place] [address] Care Team Providers Care Electro Mechanical Solar Technician Name Role Phone Unavailable Primary Care Provider Unavailabl e Encounter Details Date Type Department Care Team (Late st Contact Info) Description 12/23/2023 Lab Requisition [facility] - DermPath Lab [address] [facility], [facility] [place] [address] Alaina Ellis DO [address] [facility] 3 [place] [address] Social History Tobacco Use Types Packs/Day Years [...] AM CDT) Case Report Dermatopathology Report Case: [id number] Authorizing Provider: Alaina Ellis DO Collected: 12/23/2023 09:07 AM Ordering Location: [facility] - Received: 12/23/2023 04:21 PM [...] characteristic determined by the Dermatopathology Laboratory at [facility], directed by Dr. Colleen Almonte. These tests need not be, and therefore are not, approved by the [place] Food and Drug Administration. The tests are used for clinical purposes. Billing Codes Specimen Charges Stain Charges 20279 1 4:55 PM CDT DERMATOPATHOLOGY LABORATORY Embedded Images 4:55 PM CDT DERMATOPATHOLOGY LABORATORY Pathology/Cytolo gy TISSUE SPECIMEN FROM SKIN / Unknown 12/23/2023 9:07 AM CDT 12/23/2023 4:21 PM CDT us Alaina Ellis DO LAB - PATHOLOGY/CYTOLOGY ORDERABLES Final Result DERMATOPATHOLOGY LABORATORY [facility] - Department of Dermatology [address], [address] [phone] documented in this encounter Visit Diagnoses Not on filedocumented in this encounter
--- OUTSIDE RECORDS SUMMARY | 2025-07-15 15:56 | XMS_ITS | Clinical Summary ---
Author Organization [facility] Address [address] [place] [address] Care Team Providers Care Sponsorship Manager Name Role Phone No, Physician Primary Care Provider [phone] Allergies Active Allergy Reactions Criticality Noted Date [...] (09/21/2022): Added automatically from request for surgery [id number] Surgical History Surgery Date Site/Laterality Comments COLONOSCOPY [...] on file Legal Sex Male 8:16 AM THERAPIST SPEECH Gender Identity Not on file Sexual Orientation Not on file Last Filed Vital Signs Vital Sign Reading Time Taken Comments Blood Pressure 121/73 10/26/2022 10:00 AM THERAPIST SPEECH Pulse 60 10/26/2022 10:00 AM THERAPIST SPEECH Temperature 36.1 C (97 F) 10/26/2022 9:20 AM THERAPIST SPEECH Respiratory Rate 7 10/26/2022 10:00 AM THERAPIST SPEECH Oxygen Saturation 100% 10/26/2022 10:00 AM THERAPIST SPEECH Inhaled Oxygen Concentration - - Weight 91.2 kg (201 lb) 10/04/2022 11:15 AM THERAPIST SPEECH Height 180.3 cm (5' 11) 10/04/2022 11:15 AM THERAPIST SPEECH Body Mass Index 28.03 10/04/2022 11:15 AM THERAPIST SPEECH Plan of Treatment Health Maintenance Due Date [...] patient's age to complete this topic Insurance [facility] [employer] GENERIC Care Teams Sponsorship Manager Relationship Specialty Start Date End Date No, Physician PCP - General 08/17/22
--- OUTSIDE RECORDS SUMMARY | 2025-07-15 15:56 | XMS_ITS | Patient Health Record ---
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) Other specified dermatitis (L30.8) Active confirmed Problem Skin tag (26875150) Skin tag (L91.8) Active confirmed Problem Neoplasm of uncertain behavior of skin (16673092) Neoplasm of uncertain behavior of skin (D48.5) Problem resolved confirmed MOHS Problem 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
--- OUTSIDE RECORDS SUMMARY | 2025-07-15 15:56 | XMS_ITS | Patient Health Record ---
Author Organization [facility] Address [address] [place] [address] Care Team Providers Care Production Quality Manager Name Role Phone Maicol Castellano [phone] Allergies No Known Allergies Reason For Referral No Information Medications Medication SIG (Take, Route, Frequency, Duration) Notes Start Date End Date Status Benadryl Allergy 25 MG 1 tablet as neede d Orally every 8 hrs Active Albuterol Not-Taking Claritin 10 MG 1 tablet Orally Once a day Active Immunizations Vaccine Route Administration Date Status Comme nts *FLU VACCINE REPORTED/DECLINED ONLY Unknown 07/25/2018 Refused *FLU VACCINE REPORTED/DECLINED ONLY Unknown 06/09/2020 Administered *Fluzone 3 Yrs Plus (Q4) IM Intramuscular 08/08/2017 Admin istered *Fluzone 3 Yrs Plus (Q4) IM Intramuscular 08/23/2021 Admin istered Social History Tobacco Use: Social History Observation Description Date Details (start date - stop date) Never Smoker NA - NA Tobacco Use/Smoking Question Answer Notes You are a: nonsmoker Section Notes: GOAL - ALLERGIC RHINITIS -Minimize seasonal nasal Sx flare with use of allergy medications or IT Problems Problem Type SNOMED Code ICD Code Onset Dates Problem Status W/U Status Risk Notes Problem Allergy to peanuts (16997125) Food allergy, peanut (Z91.010) Active confirmed Problem Acute atopic conjunctivitis (18744423) Allergic conjunctiviti s, bilateral (H10.13) Active confirmed Problem Allergic rhinitis due to allergen (04060003) Allergic rhinitis due to other allergen (J30.89) Active confirmed Problem Allergic rhinitis caused by pollen (disorder) (51693209) Allergic rhinitis due to pollen (J30.1) Active confirmed Problem Allergic rhinitis caused by animal hair and dander (717405579490479) Allergic rhinitis due to animal (cat) (dog) hair and dander (J30.81) Active confirmed Problem Chronic rhinitis (30273353) Chronic rhinitis (J31.0) Active confirmed Problem Wheezing (54778936) Wheezing (R06.2) Active confirmed Plan Of Treatment No Information Insurance Providers Payer Name Payer Address Payer Phone Subscriber Number Group Number Insured Name Patient Relationship to Insured Coverage Start Date Coverage End Date [employer] [address] [address] [place] [address] [id number] Eduardo Anand Self - patient is the insured [facility] [address] [place] [id number] Eduardo Anand Self - patient is the insured Medical (General) History Medical History History ICD Code denies Surgical History Surgery Date(Month/Year)
== END 2025-07-15 13:10 | disposition home or self-care (01) ==
PROVIDERS: PCP Family Medicine; Visit Provider Urology
PROC: (CPT 55700; principal; 2025-07-15 12:45)
DX: R97.20 Elevated prostate specific antigen [PSA] (principal); E03.9 Hypothyroidism, unspecified; Z85.828 Personal history of other malignant neoplasm of skin; Z80.0 Family history of malignant neoplasm of digestive organs; Z80.1 Family history of malignant neoplasm of trachea, bronchus and lung; Z80.3 Family history of malignant neoplasm of breast; Z82.49 Family history of ischemic heart disease and other diseases of the circulatory system
CPT/HCPCS: 76872; 55700; G0416; J0696; J2003; J2250; J2704; J3010; J7120